=== PATIENT | female | born 1970 | race Caucasian/White ===

== ENCOUNTER 2017-02-02 05:20 | Day surgery (SDC) | payer OTHER ==
[~2017-02-02] VITALS: Ht 152.4 cm; Wt 59.8 kg
[~2017-02-02 05:20] MED LIST: GLUCOTROL XL2.5 MG PO; LASIX40 MG PO; LEVO-T50 MCG PO; LIPITOR40 MG PO; LO-DOSE ASPIRIN81 M2 PO; LOPRESSOR25 MG PO; NEPHROCAPS SOFTG1 MG PO; NORVASC5 MG PO; PHOSLYRA667 MG/5 M PO; PLAVIX75 MG PO; RENAL VITAMIN0.8 MG PO; RENVELA800 MG PO
[2017-02-02 06:03] VITALS: BP 151/68
[2017-02-02 06:21] LABS: CHLORIDE 98 mEq/L (99-109); POTASSIUM 4.7 mEq/L (3.7-5.4); SODIUM 139 mEq/L (136-147)
[2017-02-02 06:23] LABS: GLUCOSE 159 mg/dL (70-99)
[2017-02-02 06:24] LABS: ANION GAP 13 MEQ/L (2-14)
[2017-02-02 06:27] LABS: GFR ESTIMATE (CALCULATED) 8 mL/min/
[2017-02-02 06:28] LABS: UREA NITROGEN (BUN) 38 mg/dL (9-23)
[2017-02-02 07:14] LABS: METH RESISTANT S AUREUS PCR NEGATIVE (NEGATIVE)
[2017-02-02 07:17] LABS: PROBE CHECK PASS; SPECIMEN PROCESSING CONTROL PASS
[2017-02-02 08:44] LABS: POINT-OF-CARE METER ID UU13113675
[2017-02-02 09:25] VITALS: BP 160/72
== END 2017-02-02 09:45 | disposition home or self-care (01) ==
LOC: SDC 05:20
PROVIDERS: Ophthalmology
DX: H33.41 Traction detachment of retina, right eye (principal); I13.2 Hypertensive heart and chronic kidney disease with heart failure and with stage 5 chronic kidney disease, or end stage renal disease; I50.32 Chronic diastolic (congestive) heart failure; E11.22 Type 2 diabetes mellitus with diabetic chronic kidney disease; N18.6 End stage renal disease; E78.5 Hyperlipidemia, unspecified; E03.9 Hypothyroidism, unspecified; I25.10 Atherosclerotic heart disease of native coronary artery without angina pectoris; Z99.2 Dependence on renal dialysis; Z79.02 Long term (current) use of antithrombotics/antiplatelets; Z79.84 Long term (current) use of oral hypoglycemic drugs; Z79.82 Long term (current) use of aspirin
CPT/HCPCS: 80048; 82948; 87641; J0690; J1100; J2795; J3300

== ENCOUNTER 2017-05-18 05:10 | Day surgery (SDC) | payer OTHER ==
[~2017-05-18] VITALS: Ht 152.4 cm; Wt 59.9 kg
[~2017-05-18 05:10] MED LIST changes: +LORCET 5-325 M1 EACH PO
[2017-05-18 06:18] VITALS: BP 170/70
[2017-05-18 06:30] LABS: HEMATOCRIT 36.8 % (36.0-46.0); HEMOGLOBIN 11.7 G/DL (11.9-15.5); MCV 97.6 FL (83-99)
[2017-05-18 06:45] LABS: CHLORIDE 98 MEQ/L (99-109); CREATININE 7.8 MG/DL (0.6-1.3); GFR ESTIMATE (CALCULATED) 6 mL/min/; GLUCOSE 103 mg/dL (70-99); SODIUM 140 MEQ/L (136-147); UREA NITROGEN (BUN) 47 mg/dL (9-23)
[2017-05-18 09:30] VITALS: BP 182/76
[2017-05-18 10:06] VITALS: BP 188/74
== END 2017-05-18 10:10 | disposition home or self-care (01) ==
LOC: SDC 05:10
PROVIDERS: Ophthalmology
DX: H33.42 Traction detachment of retina, left eye (principal); H43.12 Vitreous hemorrhage, left eye; E11.319 Type 2 diabetes mellitus with unspecified diabetic retinopathy without macular edema; I13.2 Hypertensive heart and chronic kidney disease with heart failure and with stage 5 chronic kidney disease, or end stage renal disease; I50.32 Chronic diastolic (congestive) heart failure; E11.22 Type 2 diabetes mellitus with diabetic chronic kidney disease; N18.6 End stage renal disease; I25.10 Atherosclerotic heart disease of native coronary artery without angina pectoris; E03.9 Hypothyroidism, unspecified; E66.3 Overweight; E78.5 Hyperlipidemia, unspecified; Z99.2 Dependence on renal dialysis; Z79.82 Long term (current) use of aspirin; Z79.84 Long term (current) use of oral hypoglycemic drugs; Z79.02 Long term (current) use of antithrombotics/antiplatelets; Z68.25 Body mass index [BMI] 25.0-25.9, adult
CPT/HCPCS: 80048; 81025; 82948; 85014; 85018; 87641; J0690; J1100; J1120; J1885; J2250; J2795; J3300